=== PATIENT | male | born 1945 | race Caucasian/White ===

== ENCOUNTER 2016-12-15 12:08 | Emergency (ER) | payer MEDICARE ==
[~2016-12-15] VITALS: Ht 182.9 cm; Wt 104.3 kg
[2016-12-15 12:23] LABS: HEMOGLOBIN 13.7 g/dL (14.1-18.0); LYMPH # 1.5 K/mm3 (0.7-4.5)
--- NOTE | 2016-12-15 12:42 | Emergency Room Report ---
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 N Clinical Suspician of Infection? N Mental Status: 1 - Regular (Normal Baseline) Sepsis Risk:Low Sepsis Risk Have you (or family members/close friends) recently traveled outside the [place]? N If Yes, where/when: Have you had exposure to infectious disease within the past month? N TB? Other? Specify: Patient visiting his GF from out of town. PCP is Dr. Mcfadden in [place], who prescribes him T3 for chronic back pain. The patient states he took his last dose of T3 two days ago. Subsequently, he has had muscle spasm to his left shoulder, worse with movement, not associated with any numbness or tingling. He has an extensive hx CAD, as well as CKD, cardiomyopathy, AAA. He denies syncope, denies neurological sx, denies abdominal pain. No allison chest pain. No SOB but just started back smoking again. No calf pain. ALLERGIES Uncoded Allergies: CONTRAST (12/15/16) Home Medications Reported Medications Amlodipine Besylate (Amlodipine) 5 MG PO DAILY ASPIRIN (Aspirin) 81 MG PO DAILY Atorvastatin Calcium (Atorvastatin) 40 MG PO DAILY Carvedilol (Coreg 25MG) 25 MG PO BID Furosemide (Lasix 40MG) 40 MG PO DAILY Fluoxetine Hcl (Prozac 20MG Capsule(Generic)) 20 MG PO DAILY Trazodone Hcl (Trazodone HCl) 100 MG PO QHS Lisinopril (Zestril) 5 MG NG DAILY History Medical History General HI: Yes Hypertension? Yes Hyperlipidemia? Yes CHF? Yes CVA? Yes Diabetes? No Immunization Hx DT/Tetanus Unknown Surgical Hx Previous Surgery?Y GALLBLADDER APPENDECTOMY Social History Smoking Hx Smoker: Current Every Day Smoker Tobacco: Yes Type Cigarettes Alcohol Alcohol: No Review of Systems All Other Systems Reviewed and Negative Musculoskeletal see HPI Physical Exam Vital Signs Vital Signs Date Time Temp Pulse Resp B/P Pulse O2 O2 Flow FiO2 Ox Delivery Rate 12/15 1313 92 16 164/86 95 12/15 1210 97.5 67 18 204/111 99 General Appearance normal appearance, WD/WN, no apparent distress Eye Exam - bilateral eye normal exam, bilateral eye PERRL, bilateral eye EOMI Neck tender lateral, muscle spasm, left trapezius; no shingles noted; no meningismus. Respiratory Status Yes: trachea midline, chest symmetrical, non tender chest. No: respiratory distress, tender on palpation, use of accessory muscles, pain on inspiration, pain on expiration, productive cough, non productive cough. Lung Sounds bilateral: normal breath sounds, lungs clear, decreased breath sounds. Cardiovascular normal exam, regular rate/rhythm, no peripheral edema, no gallop, no JVD, no murmur, no rub, normal peripheral pulses Peripheral Pulses Pulses normal Yes Gastrointestinal normal bowel sounds, normal exam, non tender, soft, no organomegaly, no pulsatile mass, no guarding, no rebound Extremities non-tender, normal range of motion, normal inspection, normal capillary refill, no calf tenderness, no pedal edema Strength 5 Upper Ext (L), 5 Upper Ext (R), 5 Lower Ext (L), 5 Lower Ext (R) Neurologic alert, normal exam, no motor/sensory deficits, oriented x 3 Glascow Coma Scale Glascow Coma Scale Response Value EYE response: 4 Spontaneously 4 MOTOR response: 6 OBEYS 6 VERBAL response: 5 Oriented & Converses 5 Total 15 Skin intact, normal color, warm/dry Medical Decision Making LABS/Meds/Orders Pt receiving controlled substance in ED? No Results/Orders Laboratory Tests 12/15/16 1215: Sodium 138, Potassium 4.5, Chloride 105, Carbon Dioxide 24, BUN 32 H, Creatinine 4.8 H, Estimated Creat Clear 21 L, Estimated GFR (MDRD) 12, Glucose 161 H, Calcium 8.1 L, Total Bilirubin 0.4, AST 10 L, ALT 10 L, Alkaline Phosphatase 91, Creatine Kinase 86, CK-MB (CK-2) Rel Index 1.5, CK and CKMB Interp 1.3, Troponin I 0.02, Total Protein 7.3, Albumin 3.2 L, Globulin 4.1 H, Albumin/Globulin Ratio 0.8 L, WBC 7.8, RBC 4.48 L, Hgb 13.7 L, Hct 41.0 L, MCV 91.5, RDW 14.0, Plt Count 179, MPV 8.6, Gran % 72.2, Gran # 5.6, Lymphocytes % 19.0, Monocytes % 5.0, Eosinophils % 3.5, Basophils % 0.3, Lymphocytes # 1.5, Monocytes # 0.4, Eosinophils # 0.3, Basophils # 0.0, PUBS MCHC 33.4, MCH 30.5 Current Medication Orders Sig/Pastor Start time Last Medication Dose Route Stop Time Status Admin Acetaminophen 0 .STK-MED ONE 12/15 1307 DC PO Acetaminophen 650 MG ONCE ONE 12/15 1245 DC 12/15 PO 12/15 1246 1308 Sodium Chloride 10 ML PRN PRN 12/15 1215 AC IV 12/16 1215 Orders Procedure Date/time Status ELECTROCARDIOGRAM REQUEST 12/15 1216 Active CHEST(2 VIEWS-NOT PORTABLE) 12/15 1216 Active IV SALINE LOCK 12/15 1216 Active CBC WITH AUTO DIFF 12/15 1216 Complete CARDIAC ENZYMES 12/15 1216 Complete CHEM 12 PROFILE 12/15 1216 Complete CM/EKG CM/EKG EKG rate, NSR, rhythm, no evid. of ischemic chgs, no ectopy, normal QRS, normal [place], normal EKG (LVH) XRAY/CT/US XRAY/CT/US XRAY chest XR interpretation by reviewed by me Xray Results no infiltrates, normal heart size, no hematoma seen (griffin. wires neg acute), normal lung inflation rubin Departure Departure Time of Disposition 1320 Disposition DC Home or Self Care(routine) Clinical Impression Primary Impression: Musculoskeletal chest pain Secondary Impressions: Hx of CABG Condition STABLE Patient Instructions DI for Atypical Chest Pain Additional Instructions Moist heat, Tylenol as needed; see your family doctor for any narcotics refills for your chronic pain syndrome. Discharge Counseling Counseled pt/family regarding diagnosis, test results, medications/RX, home care, follow up needs ED Critical Care Critical Care No at 1323
[2016-12-15 13:31] VITALS: BP 154/86
--- NOTE | 2016-12-15 16:13 | RADIOLOGY REPORT PS360 ---
CHEST(2 VIEWS-NOT PORTABLE) HISTORY: Right upper chest pain CHEST PAIN ORDERING PHYSICIAN: Juju Vazquez MD PATIENT AGE: 71 years COMPARISON: None available FINDINGS: There has been a prior median sternotomy. There is mild cardiomegaly without failure. No lobar consolidation or collapse. Calcified granulomas are present on the left. No acute bony pathology apparent. IMPRESSION: Mild cardiomegaly with old granulomatous disease. Prior median sternotomy.
--- OUTSIDE RECORDS SUMMARY | 2017-01-07 03:46 | External Medical Summary Rpt ---
Author Author TRAMA[employer] Address Unknown Phone [email or web address] Purpose Continuity of Care Document - 12-15-2016 through 2016 Problems Code Diagnosis DOS Provider Status R07.89 OTHER CHEST PAIN Z95.1 PRESENCE OF AORTOCORONA RY BYPASS GRAFT
--- OUTSIDE RECORDS SUMMARY | 2017-01-07 03:46 | External Medical Summary Rpt ---
Author Author TRAMAINE Address Unknown Phone [email or web address] Purpose Continuity of Care Document - 12-15-2016 through 2016 Problems Code Diagnosis DOS Provider Status R07.89 OTHER CHEST PAIN Z95.1 PRESENCE OF AORTOCORONA RY BYPASS GRAFT
--- OUTSIDE RECORDS SUMMARY | 2017-01-07 03:46 | External Medical Summary Rpt ---
Author Author TRAMAINE Molina, [employer]AMA[employer] Organization [employer] Address Unknown Phone Unavailable Results Cardiac enzymes Observa Value Referen Units Interpr Notes Date tion ce etation Range Creatine 0 - 4.0 U/L Normal No Sep 18 kinase.MB informati 2017 /Creatine on in 12:15 PM source kinase.to data flavia [Ratio] in Serum or Plasma Creatine 0.0 - 3.6 ng/mL Normal No Sep 18 kinase.MB informati 2017 on in 12:15 PM [Mass/vol source ume] in data Serum or Plasma Creatine 39 - 308 U/L Normal No Sep 18 kinase informati 2017 [Enzymati on in 12:15 PM c source activity/ data volume] in Serum or Plasma Troponin 0.00 - ng/mL Normal No Sep 18 I.cardiac 0.06 informati 2017 on in 12:15 PM [Mass/vol source ume] in data Serum or Plasma Comprehensive metabolic 2000 panel in Serum or Plasma Observa Value Referen Units Interpr Notes Date tion ce etation Range Albumin/G 1.1 - 1.8 No Low No Sep 18 lobulin informati informati 2017 [Mass on in on in 12:15 PM ratio] in source source Serum or data data Plasma Albumin 3.4 - 5.0 gm/dL Low No Sep 18 [Mass/vol informati 2017 ume] in on in 12:15 PM Serum or source Plasma data Alkaline 46 - 116 U/L Normal No Sep 18 phosphata informati 2017 se on in 12:15 PM [Enzymati source c data activity/ volume] in Serum or Plasma Bilirubin 0.2 - 1.0 mg/dL Normal No Sep 18 .total informati 2017 [Mass/vol on in 12:15 PM ume] in source Serum or data Plasma Urea 7 - 18 mg/dL High No Sep 18 nitrogen informati 2017 [Mass/vol on in 12:15 PM ume] in source Serum or data Plasma Calcium 8.5 - mg/dL Low No Sep 18 [Mass/vol 10.1 informati 2017 ume] in on in 12:15 PM Serum or source Plasma data Chloride 98 - 107 mmoL/L Normal No Sep 18 [Moles/vo informati 2017 lume] in on in 12:15 PM Serum or source Plasma data Carbon 21.0 - mmoL/L Normal No Sep 18 dioxide, 32.0 informati 2017 total on in 12:15 PM [Moles/vo source lume] in data Serum or Plasma Creatinin 0.70 - mg/dL High No Sep 18 e 1.30 informati 2017 [Mass/vol on in 12:15 PM ume] in source Serum or data Plasma Creatinin 50 - 200 ML/MIN Low No Sep 18 e renal informati 2017 clearance on in 12:15 PM source predicted data by Cockcroft -Gault formula Estimated >60 ML/MIN No REFERENCE Sep 18 informati RANGE: 2017 glomerula on in >60 12:15 PM r source ML/MIN/1. filtratio data 73 SQUARE n rate METERSIf (GF this patient is -A merican, then multiply theresult by 1.210. Globulin 1.3 - 3.2 gm/dL High No Sep 18 [Mass/vol informati 2017 ume] in on in 12:15 PM Serum source data Glucose 74 - 106 mg/dL High No Sep 18 [Mass/vol informati 2017 ume] in on in 12:15 PM Serum or source Plasma data Potassium 3.5 - 5.1 mmoL/L Normal No Sep 18 informati 2017 [Moles/vo on in 12:15 PM lume] in source Serum or data Plasma Sodium 136 - 145 mmoL/L Normal No Sep 18 [Moles/vo informati 2017 lume] in on in 12:15 PM Serum or source Plasma data Aspartate 15 - 37 U/L Low No Sep 18 informati 2017 aminotran on in 12:15 PM sferase source [Enzymati data c activity/ volume] in Serum or Plasma Alanine 12 - 78 U/L Low No Sep 18 aminotran informati 2017 sferase on in 12:15 PM [Enzymati source c data activity/ volume] in Serum or Plasma Protein 6.4 - 8.2 gm/dL Normal No Sep 18 [Mass/vol informati 2017 ume] in on in 12:15 PM Serum or source Plasma data CBC W Auto Differential panel in Blood Observa Value Referen Units Interpr Notes Date tion ce etation Range Basophils 0 - 0.2 K/MM3 Normal No Sep 18 inform 2017 [#/volume on in 12:15 PM ] in source Blood by data Automated count Basophils 0.1 - 2.0 % Normal No Sep 18 /100 inform2016 leukocyte on in 12:15 PM s in source Blood by data Automated count Eosinophi 0.0 - 0.4 K/mm3 Normal No Sep 18 ls informati 2017 [#/volume on in 12:15 PM ] in source Blood by data Automated count Eosinophi 0.1 - % Normal No Sep 18 ls/100 12.0 informati 2016 leukocyte on in 12:15 PM s in source Blood by data Automated count Granulocy 1.3 - 8.0 K/mm3 Normal No Sep 18 ray inform2016 [#/volume on in 12:15 PM ] in source Blood by data Automated count Granulocy 37.0 - % Normal No Sep 18 ray/100 80.0 informati 2016 leukocyte on in 12:15 PM s in source Blood by data Automated count Hematocri 42.0 - % Low No Sep 18 t [Volume 52.0 informati 2017 on in 12:15 PM Fraction] source of Blood data Hemoglobi 14.1 - g/dL Low No Sep 18 n 18.0 inform2016 [Mass/vol on in 12:15 PM ume] in source Blood data Lymphocyt 0.7 - 4.5 K/mm3 Normal No Sep 18 es inform 2017 [#/volume on in 12:15 PM ] in source Unspecifi data ed specimen by Automated count Lymphocyt 10 - 50 % Normal No Sep 18 es inform 2017 [#/volume on in 12:15 PM ] in source Unspecifi data ed specimen by Automated count Erythrocy 27 - 31.2 pg Normal No Sep 18 te mean informati 2017 corpuscul on in 12:15 PM ar source hemoglobi data n [Entitic mass] Erythrocy 31.8 - g/dl Normal No Sep 18 te mean 35.4 inform 2017 corpuscul on in 12:15 PM ar source hemoglobi data n concentra tion [Mass/vol ume] by Automated count Erythrocy 82.2 - fl Normal No Sep 18 te mean 97.8 informati 2016 corpuscul on in 12:15 PM ar volume source [Entitic data volume] by Automated count Monocytes 0.1 - 1.0 K/mm3 Normal No Sep 18 informati 2017 [#/volume on in 12:15 PM ] in source Blood by data Automated count Monocytes 1.7 - 9.3 % Normal No Sep 18 /100 inform2016 leukocyte on in 12:15 PM s in source Blood by data Automated count Platelet 7.4 - fl Normal No Sep 18 mean 10.4 2016 volume on in 12:15 PM [Entitic source volume] data in Blood by Automated count Platelets 142 - 424 K/mm3 Normal No Sep 18 2016 [#/volume on in 12:15 PM ] in source Blood data Erythrocy 4.6 - 6.2 M/mm3 Low No Sep 18 ray 2016 [#/volume on in 12:15 PM ] in source Amniotic data fluid Erythrocy 11.5 - % Normal No Nov 18 te 17.5 2016 distribut on in 12:15 PM ion width source [Entitic data volume] by Automated count Leukocyte 4.8 - K/MM3 Normal No Sep 18 s 10.8 inform2016 [#/volume on in 12:15 PM ] in source Blood data
--- OUTSIDE RECORDS SUMMARY | 2017-01-07 03:46 | External Medical Summary Rpt ---
Author Author [employer] Organization [employer] Address Unknown Phone Unavailable Purpose Continuity of Care Document - through 2016
--- OUTSIDE RECORDS SUMMARY | 2017-01-07 03:46 | External Medical Summary Rpt ---
Demographics Preferred Language Bangladeshi Marital Status Unknown Hindu Affiliation Unknown Race Unknown Ethnic Group Unknown Author Author TRAMAINE Address Unknown Phone Immunization No patient found.
--- OUTSIDE RECORDS SUMMARY | 2017-01-07 03:46 | External Medical Summary Rpt ---
Author Author TRAMAINE Molina, TRAMAINE [employer] Organization [employer] Address Unknown Phone Unavailable [...]
--- OUTSIDE RECORDS SUMMARY | 2017-01-07 03:46 | External Medical Summary Rpt ---
Demographics Preferred Language Bangladeshi Marital Status Unknown Congregation Affiliation Unknown Race Unknown Ethnic Group Unknown Author Author TRAMAINE Address Unknown Phone Immunization No patient found.
== END 2016-12-15 13:31 | disposition home or self-care (01) ==
LOC: ER 12:08
PROVIDERS: Emergency Medicine
DX: R07.89 Other chest pain (principal); I13.0 Hypertensive heart and chronic kidney disease with heart failure and stage 1 through stage 4 chronic kidney disease, or unspecified chronic kidney disease; N18.9 Chronic kidney disease, unspecified; I50.9 Heart failure, unspecified; E78.5 Hyperlipidemia, unspecified; I25.2 Old myocardial infarction; Z86.73 Personal history of transient ischemic attack (TIA), and cerebral infarction without residual deficits; F17.210 Nicotine dependence, cigarettes, uncomplicated; I25.10 Atherosclerotic heart disease of native coronary artery without angina pectoris; I42.9 Cardiomyopathy, unspecified; I71.4 Abdominal aortic aneurysm, without rupture; Z79.82 Long term (current) use of aspirin; Z79.899 Other long term (current) drug therapy